=== PATIENT | female | born 1995 | race Caucasian/White ===

== ENCOUNTER 2018-10-07 06:26 | Emergency (ER) | payer SELFPAY ==
[~2018-10-07] VITALS: Ht 160 cm; Wt 104.3 kg
--- NOTE | 2018-10-07 07:01 | ED Cough/URI ---
General Chief Complaint: Fever-Adult/Adol Stated Complaint: BREAKING OUT IN SWEATS,COUGHING,SORE THROAT,RUNNY Source: patient, other Exam Limitations: no limitations History of Present Illness Date Seen by Provider: October 07, 2018 Time Seen by Provider: 06:45 Initial Comments Patient presents with cough, runny nose, subjective fever and chills for the past couple weeks. She been trying NyQuil and Mucinex. She does not have a thermometer. She has a throat that is sore worsening morning. Coughing is worse in the morning after she gets up. No history of asthma, COPD. Does not smoke cigarettes. No other significant medical history. Allergies and Home Medications Patient Home Medication List Home Medication List Reviewed: Yes Review of Systems Review of Systems Constitutional: chills; No diaphoresis; fever, malaise EENTM: No ear discharge, No ear pain Respiratory: cough; No phlegm, No short of breath, No wheezing Cardiovascular: No chest pain, No edema Gastrointestinal: No abdominal pain, No nausea, No vomiting Genitourinary: No discharge, No dysuria Past Rkkcxmy-Lyhvbk-Gvoftw Hx Patient Social History Alcohol Use: Denies Use Recreational Drug Use: No Smoking Status: Never a Smoker Recent Foreign Travel: No Contact w/Someone Who Travel: No Physical Exam Vital Signs - First Documented 10/07/18 06:45 Temp 98.9 Pulse 87 Resp 20 B/P (MAP) 123/86 (98) Pulse Ox 98 O2 Delivery Room Air Capillary Refill : Height: '" Weight: lbs. oz. kg; BMI Method: General Appearance: WD/WN, no apparent distress Eyes: Bilateral Eye Normal Inspection, Bilateral Eye PERRL, Bilateral Eye EOMI HEENT: PERRL/EOMI, normal ENT inspection, TMs normal, pharynx normal Neck: non-tender, full range of motion, supple, normal inspection Respiratory: lungs clear, normal breath sounds, no respiratory distress, no accessory muscle use Cardiovascular: normal peripheral pulses, regular rate, rhythm, no edema Neurologic/Psychiatric: alert, oriented x 3 Skin: normal color, warm/dry Progress/Results/Core Measures Suspected Sepsis SIRS Temperature: Pulse: Respiratory Rate: Blood Pressure / Mean: Results/Orders Micro Results Microbiology 10/07/18 Influenza Types A,B Antigen (ESTRADA) - Final, Complete My Orders Orders - ALLEN MCGUIRE Influenza A And B Antigens (10/07/18 06:55) Vital Signs/I&O 10/07/18 06:45 Temp 98.9 Pulse 87 Resp 20 B/P (MAP) 123/86 (98) Pulse Ox 98 O2 Delivery Room Air Capillary Refill : Departure Impression Primary Impression: Upper respiratory infection Qualified Codes: J06.9 - Acute upper respiratory infection, unspecified Additional Impression: Cough Disposition: 01 HOME, SELF-CARE Condition: Stable Departure-Patient Inst. Decision time for Depature: 07:27 Referrals: [facility]/K (PCP/Family) Primary Care Physician Patient Instructions: Viral Upper Respiratory Infection, Adult (DC) Add. Discharge Instructions: Humidifiers, vapor rubs, qfcu-rsr-hjhwstj decongestant such as chlorpheniramine 4 mg every 4 hours as needed. If you have fevers or chills take Tylenol and/or Motrin. All discharge instructions reviewed with patient and/or family. Voiced understanding. ALLEN MCGUIRE October 07, 2018 07:01
[2018-10-07 07:45] VITALS: BP 113/78
== END 2018-10-07 07:45 | disposition home or self-care (01) ==
LOC: EDUNIT# 06:26 → ER 06:29
DX: J06.9 Acute upper respiratory infection, unspecified (principal)
CPT/HCPCS: 87804

== ENCOUNTER 2019-10-31 20:52 | Emergency (ER) | payer SELFPAY ==
[~2019-10-31] VITALS: Ht 160 cm; Wt 114.0 kg
[2019-10-31 21:39] LABS: BILIRUBIN,URINE NEGATIVE (NEGATIVE); CLARITY,URINE CLOUDY; COLOR,URINE RED; GLUCOSE, URINE (UA) TRACE (NEGATIVE); KETONES,URINE TRACE (NEGATIVE); LEUKOCYTE ESTERASE ,URINE 1+ (NEGATIVE); NITRITE,URINE POSITIVE (NEGATIVE); PH,URINE 5.5 (5-9); PROTEIN,URINE 2+ (NEGATIVE)
[2019-10-31] MEDS ORDERED: ACETAMINOPHEN 500 MG TAB (TYLENOL) PO ONE (21:45)
--- NOTE | 2019-10-31 21:46 | ED GU-Female ---
General Chief Complaint: DIRECTOR PROPERTY Stated Complaint: APPROX 7 WKS PREG/CRAMPING/BLEEDING Source: patient Exam Limitations: no limitations History of Present Illness Date Seen by Provider: October 31, 2019 Time Seen by Provider: 21:08 Initial Comments Patient presents to ER by private conveyance with chief complaint that the past 2 hours she's had low pelvic cramping and vaginal bleeding. She's used 1 pad in the last 2 hours. She is a with a positive test with last menstrual period of September 04, 2019 putting her at 8 weeks and 1 day. He's having no nausea chest pain fevers or chills. She rates her pain as a 10 out of 10. No previous abdominal surgeries. She has a history of intermittent asthma but no other significant medical history. She follows at [facility] and has not seen her OB provider yet. She's had an ultrasound of her pelvis yet. Allergies and Home Medications Allergies Coded Allergies: diphenhydramine (Unverified Adverse Reaction, Unknown, paralysis, 10/31/19) montelukast (Unverified Adverse Reaction, Unknown, migraine, 10/31/19) Patient Home Medication List Home Medication List Reviewed: Yes Review of Systems Review of Systems Constitutional: No chills, No fever EENTM: No ear discharge, No ear pain Respiratory: No cough, No short of breath Cardiovascular: No chest pain, No edema Gastrointestinal: abdominal pain; No constipation, No nausea, No vomiting Genitourinary: denies discharge, denies dysuria Musculoskeletal: No back pain, No joint pain Skin: No pruritus, No rash Psychiatric/Neurological: Denies Headache, Denies Numbness, Denies Paresthesia Hematologic/Lymphatic: Denies Anemia, Denies Blood Clots All Other Systemes Reviewed Negative Unless Noted: No Past Ctbapmg-Rhucec-Ahwgzs Hx Patient Social History Alcohol Use: Denies Use Recreational Drug Use: No Smoking Status: Never a Smoker Recent Foreign Travel: No Contact w/Someone Who Travel: No Physical Exam Vital Signs Vital Signs - First Documented 10/31/19 21:20 Temp 37.4 Pulse 101 Resp 18 B/P (MAP) 136/100 (112) O2 Delivery Room Air Capillary Refill : Height, Weight, BMI Height: 5'3.00" Weight: 230lbs. oz. 104.012195sf; BMI Method:Stated General Appearance: WD/WN, no apparent distress HEENT: PERRL/EOMI, pharynx normal Neck: non-tender, full range of motion, normal inspection Cardiovascular: normal peripheral pulses, regular rate, rhythm Respiratory: normal breath sounds, no respiratory distress, no accessory muscle use Gastrointestinal: normal bowel sounds, non tender, no organomegaly Extremities: normal range of motion, non-tender, normal inspection, normal capillary refill Neurologic/Psychiatric: alert, normal mood/affect Skin: normal color, warm/dry Progress/Results/Core Measures Suspected Sepsis SIRS Temperature: Pulse: Respiratory Rate: Laboratory Tests 10/31/19 21:53: White Blood Count 9.0 Blood Pressure / Mean: Laboratory Tests 10/31/19 21:53: Creatinine 0.83, Platelet Count 208 Results/Orders Lab Results Laboratory Tests Test 10/31/19 21:30 10/31/19 21:53 Range/Units Urine Color RED H Urine Clarity CLOUDY Urine pH 5.5 5-9 Urine Specific [place] 1.025 H 1.016-1.022 Urine Protein 2+ H NEGATIVE Urine Glucose (UA) TRACE H NEGATIVE Urine Ketones TRACE H NEGATIVE Urine Nitrite POSITIVE H NEGATIVE Urine Bilirubin NEGATIVE NEGATIVE Urine Urobilinogen 2.0 < = 1.0 MG/DL Urine Leukocyte Esterase 1+ H NEGATIVE Urine RBC (Auto) 3+ H NEGATIVE Urine RBC TNTC H /HPF Urine WBC 5-10 H /HPF Urine Squamous Epithelial Cells 2-5 /HPF Urine Crystals NONE /LPF Urine Bacteria NEGATIVE /HPF Urine Casts NONE /LPF Urine Mucus NEGATIVE /LPF Urine Culture Indicated NO White Blood Count 9.0 4.3-11.0 10^3/uL Red Blood Count 4.52 4.35-5.85 10^6/uL Hemoglobin 13.9 11.5-16.0 G/DL Hematocrit 40 35-52 % Mean Corpuscular Volume 89 80-99 FL Mean Corpuscular Hemoglobin 31 25-34 PG Mean Corpuscular Hemoglobin Concent 35 32-36 G/DL Red Cell Distribution Width 13.2 10.0-14.5 % Platelet Count 208 130-400 10^3/uL Mean Platelet Volume 9.9 7.4-10.4 FL Neutrophils (%) (Auto) 61 42-75 % Lymphocytes (%) (Auto) 30 12-44 % Monocytes (%) (Auto) 8 0-12 % Eosinophils (%) (Auto) 1 0-10 % Basophils (%) (Auto) 0 0-10 % Neutrophils # (Auto) 5.5 1.8-7.8 X 10^3 Lymphocytes # (Auto) 2.7 1.0-4.0 X 10^3 Monocytes # (Auto) 0.8 0.0-1.0 X 10^3 Eosinophils # (Auto) 0.1 0.0-0.3 10^3/uL Basophils # (Auto) 0.0 0.0-0.1 10^3/uL Sodium Level 140 135-145 MMOL/L Potassium Level 3.6 3.6-5.0 MMOL/L Chloride Level 106 98-107 MMOL/L Carbon Dioxide Level 22 21-32 MMOL/L Anion Gap 12 5-14 MMOL/L Blood Urea Nitrogen 10 7-18 MG/DL Creatinine 0.83 0.60-1.30 MG/DL Estimat Glomerular Filtration Rate > 60 BUN/Creatinine Ratio 12 Glucose Level 92 70-105 MG/DL Calcium Level 9.2 8.5-10.1 MG/DL Human Chorionic Gonadotropin, Quant 255 H <5 MIU/ML My Orders Orders - ALLEN MCGUIRE Ua Culture If Indicated (10/31/19 20:54) Urine Bedside (10/31/19 20:54) Cbc With Automated Diff (10/31/19 21:36) Basic Metabolic Panel (10/31/19 21:36) Hcg,Quantitative (10/31/19 21:36) Acetaminophen Tablet (Tylenol Tablet) (10/31/19 21:45) Ceftriaxone For Iv Use (Rocephin For I (11/01/19 00:30) Ceftriaxone For Im Use (Rocephin For Im (11/01/19 09:00) Lidocaine 1% Inj 20 Ml (Xylocaine 1% Inj (11/01/19 00:30) Abo Rh Type (11/01/19 00:32) Rh Immune Globulin Rhophylac (11/01/19 00:59) Rhogam Administration (11/01/19 00:59) Ceftriaxone For Iv Use (Rocephin For I (11/01/19 00:52) Medications Given in ED Current Medications Medications Dose Ordered Sig/Khari Route Start Time Stop Time Status Last Admin Dose Admin Acetaminophen 1,000 mg ONCE ONCE PO 10/31/19 21:45 10/31/19 21:46 DC 10/31/19 22:11 1,000 MG Lidocaine HCl 2.1 ml ONCE ONCE INJ 11/01/19 00:30 11/01/19 00:31 DC 11/01/19 01:13 2.1 ML Vital Signs/I&O 10/31/19 21:20 Temp 37.4 Pulse 101 Resp 18 B/P (MAP) 136/100 (112) O2 Delivery Room Air Capillary Refill : Progress Note #1: Time: 00:25 Progress Note Patient has a quantitative hCG of 255 which is incompatible with an 8 week likely. Suspect she is having miscarriage of of unknown location. She claims to have 10 of 10 pain but has been resting with no appearance of discomfort. We'll going to offer her expectant management versus active management by having her follow-up in 2 days with her primary care doctor. Progress Note #2: Time: 01:48 Progress Note Rhogam administered. Departure Impression Primary Impression: Incomplete miscarriage Disposition: HOME, SELF-CARE Condition: Stable Departure-Patient Inst. Decision time for Depature: 01:48 Referrals: [facility]/ (PCP) Primary Care Physician SUSSY ROBERTS APRN (Family) Primary Care Physician Patient Instructions: Miscarriage (DC), Dealing With Miscarriage Add. Discharge Instructions: Plan to follow up Friday with your anesthesiologist and critical care for repeat labs. Tylenol 1000 mg every 8 hours as needed for pain. Heating pads. Expect cramping, bleeding and possibly passing some small bits of tissue. Return to the ER if you experience blood clots larger than a chicken egg, intractable pain, intractable nausea or fever. All discharge instructions reviewed with patient and/or family. Voiced understanding. Work/School Note: Work Release Form Date Seen in the Emergency Department: November 01, 2019 Return to Work: November 04, 2019 Restrictions: No Restrictions ALLEN MCGUIRE October 31, 2019 21:46
[2019-10-31 21:48] LABS: BACTERIA,URINE NEGATIVE /HPF; RBC,URINE TNTC /HPF
[2019-10-31 21:59] LABS: BASOPHILS % (AUTO) 0 % (0-10); EOSINOPHILS # (AUTO) 0.1 10^3/uL (0.0-0.3); EOSINOPHILS % (AUTO) 1 % (0-10); HEMATOCRIT 40 % (35-52); HEMOGLOBIN 13.9 G/DL (11.5-16.0); LYMPHOCYTES # (AUTO) 2.7 X 10^3 (1.0-4.0); LYMPHOCYTES % (AUTO) 30 % (12-44); MEAN CORPUSCULAR HEMOGLOBIN 31 PG (25-34); MEAN CORPUSCULAR HGB CONC 35 G/DL (32-36); MEAN CORPUSCULAR VOLUME 89 FL (80-99); MEAN PLATELET VOLUME 9.9 FL (7.4-10.4); MONOCYTES # (AUTO) 0.8 X 10^3 (0.0-1.0); MONOCYTES % (AUTO) 8 % (0-12); NEUTROPHILS # (AUTO) 5.5 X 10^3 (1.8-7.8); NEUTROPHILS % (AUTO) 61 % (42-75); PLATELET COUNT 208 10^3/uL (130-400); RED CELL DISTRIBUTION WIDTH 13.2 % (10.0-14.5)
[2019-10-31 22:13] LABS: CHLORIDE 106 MMOL/L (98-107); POTASSIUM 3.6 MMOL/L (3.6-5.0); SODIUM 140 MMOL/L (135-145)
[2019-10-31 22:14] LABS: CALCIUM 9.2 MG/DL (8.5-10.1)
[2019-10-31 22:15] LABS: GLUCOSE 92 MG/DL (70-105)
[2019-10-31 22:16] LABS: CARBON DIOXIDE 22 MMOL/L (21-32)
[2019-10-31 22:19] LABS: BUN/CREATININE RATIO 12; CREATININE SERUM 0.83 MG/DL (0.60-1.30); GFR ESTIMATED > 60
[2019-11-01] MEDS ORDERED: cefTRIAXone FOR IV USE 1,000 MG in WATER (STERILE) FOR INJECTION 10 ML IV ONE (00:30)
[2019-11-01] MEDS ORDERED: LIDOCAINE 1% INJ 20 ML 20 ML VIAL INJ ONE (00:30)
[2019-11-01] MEDS ORDERED: cefTRIAXone 1,000 MG IV (ROCEPHIN) VIAL ONE (00:52)
--- NOTE | 2019-11-01 01:30 | NUR ---
RHOGAM GIVEN IM TO LEFT VENTROGLUTEAL.
[2019-11-01 01:51] VITALS: BP 136/100
[2019-11-01] MEDS ORDERED: cefTRIAXone 1,000 MG/2.86 ml vial (IM ONLY) IM SCH (09:00)
== END 2019-11-01 01:51 | disposition home or self-care (01) ==
LOC: EDUNIT# 20:52 → ER 20:54
DX: O03.4 Incomplete spontaneous abortion without complication (principal); Z88.8 Allergy status to other drugs, medicaments and biological substances
CPT/HCPCS: 36415; 80048; 81000; 84702; 84703; 85025; 86900; 86901; 96372

== ENCOUNTER 2020-01-26 14:27 | Emergency (ER) | payer SELFPAY ==
[2020-01-27 10:22] LABS: COLOR,URINE YELLOW
[2020-01-27 10:23] LABS: BILIRUBIN,URINE NEGATIVE (NEGATIVE); CLARITY,URINE SL CLOUDY; GLUCOSE, URINE (UA) NEGATIVE (NEGATIVE); KETONES,URINE NEGATIVE (NEGATIVE); LEUKOCYTE ESTERASE ,URINE 2+ (NEGATIVE); NITRITE,URINE NEGATIVE (NEGATIVE); PH,URINE 6.5 (5-9); PROTEIN,URINE NEGATIVE (NEGATIVE)
[2020-01-27 10:24] LABS: BACTERIA,URINE TRACE /HPF; HCG,QUALITATIVE URINE NEGATIVE (NEGATIVE); SQUAMOUS EPITHELIAL CELL,UR 0-2 /HPF; WBC,URINE 25-50 /HPF
== END 2020-01-26 15:20 | disposition home or self-care (01) ==
LOC: ER 14:27 → EDUNIT# 14:27 → ER 15:20
DX: N76.0 Acute vaginitis (principal); N39.0 Urinary tract infection, site not specified
CPT/HCPCS: 36415; 81000; 84703; 87070; 87088; 87205; 87210; 87491; 87591

== ENCOUNTER 2020-07-08 00:26 | Emergency (ER) | payer SELFPAY ==
[~2020-07-08] VITALS: Ht 160 cm; Wt 114.0 kg
[2020-07-08 00:35] VITALS: BP 118/89
--- NOTE | 2020-07-08 00:50 | ED EENT ---
History of Present Illness General Chief Complaint: Oral/Throat Problems Stated Complaint: SORE THROAT Source: patient History of Present Illness Date Seen by Provider: Jul 08, 2020 Time Seen by Provider: 00:37 Initial Comments PT ARRIVES VIA POV FROM HOME C/O SORE THROAT X 2 DAYS NO FEVER/SWEATS/CHILLS NO URI SYMPTOMS NO COUGH OR DIFFICULTY BREATHING, BUT DOES HURT TO SWALLOW. NO DROOLING OR DIFFICULTY HANDLING SECRETIONS NO HEADACHE NO GI SYMPTOMS NO LOSS OF TASTE OR SMELL NO HEADACHE OR BODY ACHES TOOK IBUPROFEN 2 DAYS AGO, TRIED USING A MOUTHWASH, BUT DID NOT GARGLE IT. LIVES AT HOME WITH , NEITHER WORK NO KNOWN SICK CONTACTS OR EXPOSURE TO COVID-19 GETS THIS ABOUT ONCE A YEAR LMP 06/30/20--NORMAL. NO CONTROL. PCP: [facility], MILAGROS ROBERTS Allergies and Home Medications Allergies Coded Allergies: diphenhydramine (Unverified Adverse Reaction, Unknown, paralysis, 10/31/19) montelukast (Unverified Adverse Reaction, Unknown, migraine, 10/31/19) Home Medications Amoxicillin 875 Mg Tablet, 875 MG PO BID Prescribed by: KONRAD MERCER on 07/08/20 0101 Patient Home Medication List Home Medication List Reviewed: Yes Review of Systems Review of Systems Constitutional: no symptoms reported Eyes: No Symptoms Reported Ears: No Symptoms Reported Nose: no symptoms reported Mouth: no symptoms reported Throat: see HPI, pain; denies neck stiffness, denies hoarse, denies aphonia, denies muffled; painful swallowing; denies difficulty with fluids Respiratory: no symptoms reported Cardiovascular: no symptoms reported Gastrointestinal: no symptoms reported : No LMP: Jun 30, 2020 Musculoskeletal: no symptoms reported Skin: no symptoms reported; No rash Neurological: No Symptoms Reported; Denies Headache Hematologic/Lymphatic: No Symptoms Reported Immunological/Allergic: no symptoms reported Past Teqmiwo-Bfiusi-Rubiul Hx Past Med/Social Hx: Reviewed and Corrections made Patient Social History Alcohol Use: Denies Use Drug of Choice: DENIES Smoking Status: Never a Smoker Recent Hopitalizations: No Seasonal Allergies Seasonal Allergies: No Past Medical History Surgeries: No Respiratory: No Cardiac: No Neurological: No : No Genitourinary: No Gastrointestinal: No Musculoskeletal: No Endocrine: No HEENT: Yes (OCCASIONAL TONSILLITIS) Tonsilitis Cancer: No Psychosocial: No Integumentary: No Blood Disorders: No Physical Exam Vital Signs Vital Signs - First Documented 07/08/20 00:35 Temp 37.0 Pulse 128 Resp 16 B/P (MAP) 118/89 (99) O2 Delivery Room Air Height, Weight, BMI Height: 5'3.00" Weight: 230lbs. oz. 104.445560ck; 44.00 BMI Method:Stated General Appearance: WD/WN, no apparent distress, obese, other (DOES NOT APPEAR ILL OR TO BE IN ANY DISCOMFORT OR DISTRESS. ) Eyes: bilateral eye normal inspection, bilateral eye PERRL, bilateral eye EOMI Ears: bilateral ear auricle normal, bilateral ear canal normal, bilateral ear TM normal Nose: normal inspection Mouth/Throat: No tonsillar exudate; tonsillar swelling (+2/4 BILATERALLY); No trismus, No uvula swelling, No voice changes; other (PHARYNGEAL ERYTHEMA AND TONSILS VERY INFLAMED. 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, no motor/sensory deficits, alert, normal mood/affect, oriented x 3 Skin: normal color, warm/dry; No rash Progress/Results/Core Measures Results/Orders Lab Results Laboratory Tests Test 07/08/20 00:40 Range/Units Group A Streptococcus Screen NEGATIVE NEGATIVE My Orders Orders - KONRAD MERCER DO Rapid Strep A Screen (07/08/20 00:37) Rx-Amoxicillin Capsule (Rx-Polymox Capsu (07/08/20 01:01) Vital Signs/I&O 07/08/20 00:35 Temp 37.0 Pulse 128 Resp 16 B/P (MAP) 118/89 (99) O2 Delivery Room Air Departure Impression Primary Impression: Tonsillitis Disposition: HOME, SELF-CARE Condition: Stable Departure-Patient Inst. Referrals: [facility]/RAD[facility] (PCP) Primary Care Physician SUSSY ROBERTS APRN (Family) Primary Care Physician Patient Instructions: Sore Throat, Adult (DC) Add. Discharge Instructions: FREQUENT SALT WATER GARGLES OVER THE COUNTER CHLORASEPTIC NEEDED FOR PAIN TYLENOL 1 GRAM/ MOTRIN 800 MG 4 TIMES A DAY NEEDED FOR PAIN OR FEVER FOLLOW UP WITH YOUR DR IN 3-4 DAYS IF NO BETTER All discharge instructions reviewed with patient and/or family. Voiced understanding. Scripts Amoxicillin (Amoxicillin) 875 Mg Tablet 875 MG PO BID, #20 TAB Prov: KONRAD MERCER DO 07/08/20 KONRAD MERCER DO Jul 08, 2020 00:50
[2020-07-08] MEDS ORDERED: AMOX875T2 PO (01:01)
[2020-07-08] MEDS ORDERED: RX-AMOXICILLIN 500 MG CAP #3 PPK PO STA (01:01)
== END 2020-07-08 01:11 | disposition home or self-care (01) ==
LOC: EDUNIT# 00:26 → ER 00:30
DX: J03.90 Acute tonsillitis, unspecified (principal); E66.9 Obesity, unspecified; Z68.41 Body mass index [BMI] 40.0-44.9, adult; Z88.8 Allergy status to other drugs, medicaments and biological substances
CPT/HCPCS: 87430; 99284

== ENCOUNTER 2021-01-16 21:29 | Emergency (ER) | payer SELFPAY ==
[~2021-01-16] VITALS: Ht 160 cm; Wt 112.0 kg
[~2021-01-16 21:29] MED LIST: AMOX875T2 PO
[2021-01-16 21:41] VITALS: BP 122/80
[2021-01-16] MEDS ORDERED: ACHD5005 PO (22:10)
[2021-01-16] MEDS ORDERED: PENI500T PO (22:10)
--- NOTE | 2021-01-16 22:11 | ED EENT ---
History of Present Illness General Chief Complaint: Dental Problems/Pain Stated Complaint: TOOTH PAIN Source: patient Exam Limitations: no limitations History of Present Illness Date Seen by Provider: Jan 16, 2021 Time Seen by Provider: 21:58 Initial Comments Patient is a 25-year-old female who presents to the emergency room with right posterior molar pain and pain that she believes is related to her wisdom teeth erupting. Patient denies any fevers or chills. She states she feels like she is getting swelling into her tonsils as it hurts to open her mouth and swallow. No Covid concerns. No nausea vomiting diarrhea. Last menstrual cycle started yesterday. She states she has been taking Tylenol and 800 mg of ibuprofen alternating every 6 hours for pain. All other review of systems reviewed and negative except as stated. Timing/Duration: gradual (Over 3 days) Severity: moderate Location: dental Prearrival Treatment: over the counter meds Associated Symptoms: facial pain/swelling, sore throat, tooth pain Allergies and Home Medications Allergies Coded Allergies: diphenhydramine (Unverified Adverse Reaction, Unknown, paralysis, 10/31/19) montelukast (Unverified Adverse Reaction, Unknown, migraine, 10/31/19) Home Medications Amoxicillin 875 Mg Tablet, 875 MG PO BID Prescribed by: KONRAD MERCER on 07/08/20 0101 Patient Home Medication List Home Medication List Reviewed: Yes Review of Systems Review of Systems Constitutional: see HPI Mouth: pain (Dental pain right posterior molar) Throat: pain Respiratory: no symptoms reported Cardiovascular: no symptoms reported Gastrointestinal: no symptoms reported : No Musculoskeletal: no symptoms reported Skin: no symptoms reported All Other Systems Reviewed Negative Unless Noted: Yes Past Nkiwhth-Tdrpoh-Gtihcc Hx Seasonal Allergies Seasonal Allergies: No Past Medical History Surgeries: No Respiratory: No Cardiac: No Neurological: No Genitourinary: No Gastrointestinal: No Musculoskeletal: No Endocrine: No HEENT: Yes (OCCASIONAL TONSILLITIS) Tonsilitis Cancer: No Psychosocial: No Integumentary: No Blood Disorders: No Physical Exam Height, Weight, BMI Height: 5'3.00" Weight: 230lbs. oz. 104.220296lg; 44.00 BMI Method:Stated General Appearance: WD/WN, no apparent distress Nose: normal inspection Mouth/Throat: normal mouth inspection, other (Mild pharyngeal erythema; apparent right lower wisdom tooth starting to erupt through the gingiva, tender to palpation in the gingiva around this tooth.) Neck: full range of motion, supple, normal inspection Respiratory: no respiratory distress, no accessory muscle use Neurologic/Psychiatric: alert, normal mood/affect, oriented x 3 Skin: normal color, warm/dry Departure Impression Primary Impression: Pain, dental Disposition: 01 HOME, SELF-CARE Condition: Stable Departure-Patient Inst. Decision time for Depature: 22:08 Referrals: [facility] (PCP) Primary Care Physician SUSSY ROBERTS APRN (Family) Primary Care Physician Patient Instructions: Dental Pain Add. Discharge Instructions: Take the antibiotics 4 times a day for a week. Continue to take junj-kia-hrlvktl ibuprofen, 800 mg which is 4 tablets every 8 hours with food as needed for pain. I have given you hydrocodone as well. Take this only as needed for severe pain. Warm salt water rinses and gargles will help with throat pain and dental pain and gum swelling. Follow-up with [facility] tomorrow call for dental evaluation/follow-up. Return to the emergency room for any worsening pain, swelling, fevers or other emergent concerning symptoms. Scripts Hydrocodone/Acetaminophen (Hydrocodone-Acetamin 5-325 mg) 1 Each Tablet 1 TAB PO Q6H PRN for PAIN-MODERATE (5-7), #8 TAB Prov: DYLAN HERNANDEZ MD 01/16/21 Penicillin V Potassium (Penicillin V Potassium) 500 Mg Tablet 500 MG PO QID, #28 TAB Prov: DYLAN HERNANDEZ MD 01/16/21 DYLAN HERNANDEZ MD Jan 16, 2021 22:11
[2021-01-16] MEDS ORDERED: HYDROcodone/APAP 5 MG/325 MG (LORTAB) TAB PO ONE (22:15)
== END 2021-01-16 22:21 | disposition home or self-care (01) ==
LOC: EDUNIT# 21:29 → ER 21:31
DX: K08.89 Other specified disorders of teeth and supporting structures (principal)
CPT/HCPCS: 99283

== ENCOUNTER 2021-04-23 15:37 | Emergency (ER) | payer SELFPAY ==
[~2021-04-23] VITALS: Ht 162.6 cm; Wt 114.8 kg
[~2021-04-23 15:37] MED LIST changes: +ACHD5005 PO; +PENI500T PO
--- NOTE | 2021-04-23 15:53 | ED GU-Female ---
General Chief Complaint: OB < 20 WEEKS Stated Complaint: 7 WKS PREG/CONSTIPATION Source: patient, family ((sig other)) Exam Limitations: no limitations History of Present Illness Date Seen by Provider: Apr 23, 2021 Time Seen by Provider: 15:40 Initial Comments Patient is a 25-year-old female who is a G2, P0 who presents to the emergency department today with a chief complaint of "constipation". Patient states that she has been taking some Colace sporadically over the last few days. She took 1 "the other day" and then yesterday she took 3. Patient states she did an enema last night and was able to force out some very hard stool. Last bowel movement before that had been about a week prior. She denies any black or bloody stool. She has not been using any medication such as Zofran for nausea. She states she has been drinking "lots of water". She states her last menstrual cycle was about March 17. EGA 5w 07/16. Patient denies any recent fevers, chills cough or congestion or infectious symptoms. Denies abnormal vaginal discharge or bleeding. Denies burning or frequency with urination. No past surgical history. She has taken some Tylenol for abdominal discomfort but she states it has not helped. Most recent miscarriage was in October 2020. All other review of systems reviewed and negative except as stated Timing/Duration: week, getting worse Severity/Quality: cramping Location: suprapubic Radiation: none Activities at Onset: none Associated Symptoms: abdominal pain (suprapubic discomfort) Allergies and Home Medications Allergies Coded Allergies: diphenhydramine (Unverified Adverse Reaction, Unknown, paralysis, 10/31/19) montelukast (Unverified Adverse Reaction, Unknown, migraine, 10/31/19) Patient Home Medication List Home Medication List Reviewed: Yes Amoxicillin (Amoxicillin) 875 Mg Tablet, 875 MG PO BID Prescribed by: KONRAD MERCER on 07/08/20 0101 Hydrocodone/Acetaminophen (Hydrocodone-Acetamin 5-325 mg) 1 Each Tablet, 1 TAB PO Q6H PRN for PAIN-MODERATE (5-7) Prescribed by: DYLAN HERNANDEZ on 01/16/212209 Penicillin V Potassium (Penicillin V Potassium) 500 Mg Tablet, 500 MG PO QID Prescribed by: DYLAN HERNANDEZ on 01/16/212209 Review of Systems Review of Systems Constitutional: see HPI EENTM: no symptoms reported Respiratory: no symptoms reported Cardiovascular: no symptoms reported Gastrointestinal: abdominal pain, constipation Genitourinary: no symptoms reported : Yes Expected Date of Delivery: Dec 22, 2021 LMP: Mar 17, 2021 Musculoskeletal: no symptoms reported Skin: no symptoms reported All Other Systemes Reviewed Negative Unless Noted: Yes Past Yeiyweo-Fraexp-Jdxidq Hx Patient Social History Tobacco Use?: No Use of E-Cig and/or Vaping dev: No Substance use?: No Alcohol Use?: No Immunizations Up To Date First/Initial COVID19 Vaccinat: NONE Second COVID19 Vaccination Manas: NONE Third COVID19 Vaccination Date: NONE COVID19 Vaccine Inspector Precision Assembly: NONE Seasonal Allergies Seasonal Allergies: No Past Medical History Surgery/Hospitalization HX: MISCARRIAGE 10/20/20 Surgeries: No Respiratory: No Cardiac: No Neurological: No Genitourinary: No Gastrointestinal: No Musculoskeletal: No Endocrine: No HEENT: Yes (OCCASIONAL TONSILLITIS) Tonsilitis Cancer: No Psychosocial: No Integumentary: No Blood Disorders: No Physical Exam Vital Signs Vital Signs - First Documented 04/23/21 15:41 Temp 37.1 Pulse 100 Resp 20 B/P (MAP) 137/96 (110) Pulse Ox 98 O2 Delivery Room Air Capillary Refill : Height, Weight, BMI Height: 5'3.00" Weight: 230lbs. oz. [id number]; 43.00 BMI Method:Stated General Appearance: WD/WN, no apparent distress HEENT: PERRL/EOMI Neck: normal inspection Cardiovascular: regular rate, rhythm, no murmur Respiratory: lungs clear, normal breath sounds, no respiratory distress, no accessory muscle use Gastrointestinal: normal bowel sounds, non tender, soft Extremities: normal range of motion, normal inspection Neurologic/Psychiatric: alert, normal mood/affect, oriented x 3 Skin: normal color, warm/dry Progress/Results/Core Measures Suspected Sepsis SIRS Temperature: Pulse: Respiratory Rate: Blood Pressure / Mean: Results/Orders Lab Results Laboratory Tests Test 04/23/21 15:54 Range/Units Urine Color YELLOW Urine Clarity SL CLOUDY Urine pH 7.5 5-9 Urine Specific Barrow 1.020 1.016-1.022 Urine Protein NEGATIVE NEGATIVE Urine Glucose (UA) NEGATIVE NEGATIVE Urine Ketones NEGATIVE NEGATIVE Urine Nitrite NEGATIVE NEGATIVE Urine Bilirubin NEGATIVE NEGATIVE Urine Urobilinogen 0.2 < = 1.0 MG/DL Urine Leukocyte Esterase 1+ H NEGATIVE Urine RBC (Auto) NEGATIVE NEGATIVE Urine RBC NONE /HPF Urine WBC 10-25 H /HPF Urine Squamous Epithelial Cells 0-2 /HPF Urine Crystals NONE /LPF Urine Bacteria MODERATE H /HPF Urine Casts NONE /LPF Urine Mucus NEGATIVE /LPF Urine Culture Indicated YES My Orders Orders - DYLAN HERNANDEZ MD Ua Culture If Indicated (04/23/21 15:47) Urine Culture (04/23/21 15:54) Vital Signs/I&O 04/23/21 15:41 Temp 37.1 Pulse 100 Resp 20 B/P (MAP) 137/96 (110) Pulse Ox 98 O2 Delivery Room Air Capillary Refill : Progress Note : Time: 15:51 Progress Note Patient has a nontender belly, positive bowel sounds. No unilateral abdominal pain. No abnormal vaginal discharge or bleeding. Will recommend svma-gjf-fftrpwv Colace, twice daily. Benefiber/MiraLAX. Increase water intak e, prune juice or dried prunes. She has scheduled follow-up with Dr. Stovall. Urinalysis will be checked to make sure that she does not have any asymptomatic bacteriuria. Return precautions given. All questions sought and answered. Patient is stable for discharge. Departure Impression Primary Impression: Constipation Qualified Codes: K59.00 - Constipation, unspecified Additional Impressions: First trimester Asymptomatic bacteriuria antepartum Disposition: 01 HOME, SELF-CARE Condition: Stable Departure-Patient Inst. Decision time for Depature: 15:53 [place]: [facility] [place] Primary Care Physician ANTONY COOL DO (Family) Primary Care Physician MITUL STOVALL MD Patient Instructions: Constipation in Adults Add. Discharge Instructions: Make sure you are drinking lots of water. You can also drink prune juice or eat dried prunes to help soften stools. Likp-feu-eyclkgb Colace 1 tablet twice a day. You can also use roff-qzs-uomsvyo MiraLAX or Benefiber daily to help soften stoo ls. Enemas are okay intermittently to help relieve rectal discomfort. Try not to strain with a bowel movement. Keep your follow-up appointment with Dr. Stovall as scheduled. Keflex 500mg 3 times a day for 5 days for bacteria in your urine. Return to the emergency room for any increased abdominal pain, vaginal bleeding, rectal bleeding or any other emergent concerning symptoms. Scripts Cephalexin (Cephalexin) 500 Mg Tablet 500 MG PO TID, #15 TAB Prov: DYLAN HERNANDEZ MD 04/23/21 DYLAN HERNANDEZ MD Apr 23, 2021 15:53
[2021-04-23 16:07] LABS: BILIRUBIN,URINE NEGATIVE (NEGATIVE); CLARITY,URINE SL CLOUDY; COLOR,URINE YELLOW; GLUCOSE, URINE (UA) NEGATIVE (NEGATIVE); KETONES,URINE NEGATIVE (NEGATIVE); LEUKOCYTE ESTERASE ,URINE 1+ (NEGATIVE); NITRITE,URINE NEGATIVE (NEGATIVE); PH,URINE 7.5 (5-9); PROTEIN,URINE NEGATIVE (NEGATIVE)
[2021-04-23 16:16] LABS: BACTERIA,URINE MODERATE /HPF; SQUAMOUS EPITHELIAL CELL,UR 0-2 /HPF
[2021-04-23] MEDS ORDERED: CEPH500T PO (16:20)
[2021-04-23 16:27] VITALS: BP 111/78
== END 2021-04-23 16:27 | disposition home or self-care (01) ==
LOC: EDUNIT# 15:37 → ER 15:38
DX: O26.891 Other specified pregnancy related conditions, first trimester (principal); K59.00 Constipation, unspecified; R82.71 Bacteriuria; Z3A.01 Less than 8 weeks gestation of pregnancy
CPT/HCPCS: 81000; 84703; 87088; 99283

== ENCOUNTER 2021-09-08 18:52 | Outpatient (CLI) | payer MEDICAID ==
[~2021-09-08 18:52] MED LIST changes: +CEPH500T PO
[2021-09-08 19:29] VITALS: BP 108/57
[2021-09-08] MEDS ORDERED: PNV1TABL9 PO (19:35)
[2021-09-08] MEDS ORDERED: FAMO-274 PO (19:35)
--- NOTE | 2021-09-10 08:06 | Physician Query-Final Dx ---
Clinic Account Progress/Dx Physician Query: Please give diagnosis Please include # weeks gestation Date of Service Sep 08, 2021 at 18:52 AYSHA,JunSep 10, 2021 08:06
== END 2021-09-08 20:05 ==
LOC: LDRP 18:52 → WSo 18:52
PROVIDERS: ATTEND Family Medicine
DX: O9A.212 Injury, poisoning and certain other consequences of external causes complicating pregnancy, second trimester (principal); W19.XXXA Unspecified fall, initial encounter; Z3A.25 25 weeks gestation of pregnancy
CPT/HCPCS: 87088; G0463; 99212

== ENCOUNTER 2021-11-27 22:38 | Outpatient (CLI) | payer MEDICAID ==
[~2021-11-27] VITALS: Ht 163 cm; Wt 117.8 kg
[~2021-11-27 22:38] MED LIST changes: +FAMO-274 PO; +PNV1TABL9 PO
[2021-11-27 23:02] LABS: BILIRUBIN,URINE NEGATIVE (NEGATIVE); CLARITY,URINE CLEAR; COLOR,URINE YELLOW; GLUCOSE, URINE (UA) NEGATIVE (NEGATIVE); KETONES,URINE TRACE (NEGATIVE); LEUKOCYTE ESTERASE ,URINE 2+ (NEGATIVE); NITRITE,URINE NEGATIVE (NEGATIVE); PROTEIN,URINE 1+ (NEGATIVE)
[2021-11-27 23:07] VITALS: BP 126/75
[2021-11-27 23:14] LABS: BACTERIA,URINE LARGE /HPF; WBC,URINE 25-50 /HPF
[2021-11-27 23:15] LABS: CALCIUM OXALATE CRYSTALS,UR MODERATE /LPF
[2021-11-27] MEDS ORDERED: NS IV 1000 ML 0 ML ONE (23:42)
[2021-11-27] MEDS ORDERED: NS IV 1000 ML 1,000 ML IV ONE (23:45)
--- NOTE | 2021-11-30 08:02 | Physician Query-Final Dx ---
AYSHA,11/30/21 0802: Clinic Account Progress/Dx Physician Query: Please give diagnosis Please include # weeks gestation Date of Service Nov 27, 2021 at 22:38 CHECO HOLLINGSWORTH MD 11/30/21 1231: Clinic Account Progress/Dx DIAGNOSIS: Diagnosis contractions without active labor 36 weeks gestation AYSHA,JunNov 30, 2021 08:02 CHECO HOLLINGSWORTH MD Nov 30, 2021 12:31
== END 2021-11-28 01:19 | disposition home or self-care (01) ==
LOC: WSo 22:38 → LDRP 22:38 → WSo 11-28 01:19
PROVIDERS: ATTEND Family Medicine
DX: O62.9 Abnormality of forces of labor, unspecified (principal); Z3A.00 Weeks of gestation of pregnancy not specified
CPT/HCPCS: 81000; 87088; 99213

== ENCOUNTER 2021-11-30 01:20 | Emergency (ER) | payer MEDICAID ==
[~2021-11-30] VITALS: Ht 160 cm; Wt 116.7 kg
[2021-11-30 01:54] VITALS: BP 147/68
--- NOTE | 2021-11-30 01:54 | ED Integumentary General ---
General Chief Complaint: Bite-Animal/Human/Insect Stated Complaint: POSS SPIDER BITE ON ABDOMIN,37 WEEKS PREG Nursing Triage Note: PT ARRIVAL TO ER WITH COMPLAINT OF INSECT BITE X1 WEEK. PT STATES THAT IT ITCHES AND SHE IS HERE TO SEE IF ITS POISONOUS. AREA IS REDDENED AND SWELLING FROM PATIENT SCRATCHING AND MESSING WITH IT. Source: patient, mother History of Present Illness Date Seen by Provider: Nov 30, 2021 Time Seen by Provider: 01:45 Initial Comments PT ARRIVES VIA POV FROM HOME WITH MOTHER HAS A ITCHY RED SPOT TO RIGHT LOWER ABDOMEN X 1 WEEK THINKS SHE MIGHT HAVE GOT STUNG BY SOME INSECT, BUT DID NOT SEE OR FEEL ANYTHING STING HER SYMPTOMS ARE NO DIFFERENT TONIGHT IN ANY WAY HAS NOT SOUGHT CARE UNTIL TONIGHT HAS NOT TAKEN ANYTHING FOR IT OR APPLIED ANYTHING TOPICALLY TO THE AREA NO PAIN NO DRAINAGE NO INCREASE IN SIZE PT IS 38 WEEKS HAS ROUTINE OB APPOINTMENT LATER TODAY NO PROBLEMS WITH PCP: SHARON-RADHA, DR. HOLLINGSWORTH Allergies and Home Medications Allergies Coded Allergies: diphenhydramine (Unverified Adverse Reaction, Unknown, paralysis, 10/31/19) montelukast (Unverified Adverse Reaction, Unknown, migraine, 10/31/19) Patient Home Medication List Home Medication List Reviewed: Yes Famotidine (Zantac-360 (Famotidine)) 10 Mg Tablet, 10 MG PO DAILY, (Reported) Entered as Reported by: LEAH RUGGIERO on 09/08/211934 Pnv Cmb#21/Iron/Folic Acid ( Complete Caplet) 1 Each Tablet, 1 EACH PO DAILY, (Reported) Entered as Reported by: LEAH RUGGIERO on 09/08/211934 Review of Systems Review of Systems Constitutional: no symptoms reported : Yes Skin: see HPI Past Vchgmhl-Vmldgf-Oifmeq Hx Patient Social History Tobacco Use?: No Use of E-Cig and/or Vaping dev: No Substance use?: No Alcohol Use?: No Pt feels they are or have been: No Immunizations Up To Date Influenza Vaccine Up-to-Date: No; Not Current First/Initial COVID19 Vaccinat: NONE Second COVID19 Vaccination Manas: NONE Third COVID19 Vaccination Date: NONE Seasonal Allergies Seasonal Allergies: No Past Medical History Surgery/Hospitalization HX: MISCARRIAGE 10/20/20 Surgeries: No Respiratory: No Cardiac: No Neurological: No : Yes Hx : 2 Hx Para: 0 Hx Total # of Abortions (Sp): 1 Genitourinary: No Gastrointestinal: No Musculoskeletal: No Endocrine: No HEENT: Yes (OCCASIONAL TONSILLITIS) Tonsilitis Cancer: No Psychosocial: No Integumentary: No Blood Disorders: No Physical Exam Vital Signs Vital Signs - First Documented 11/30/21 01:42 Temp 36.4 Pulse 85 Resp 18 B/P (MAP) 147/68 (94) Pulse Ox 99 O2 Delivery Room Air Capillary Refill : Less Than 3 Seconds General Appearance: WD/WN, no apparent distress Gastrointestinal: non tender, other (GRAVID UTERUS, NEAR TERM, ACTIVE MOVEMENT. RIGHT LOWER ABDOMEN WITH 1 CM SLIGHTLY RAISED ERYTHEMATOUS PAPULE. NON-TENDER. NO POINTING, NO FLUCTUANCE. NO DRAINAGE. ) Extremities: normal inspection Neurologic/Psychiatric: no motor/sensory deficits, alert, normal mood/affect Skin: normal color, warm/dry, other ( ABOVE) Progress/Results/Core Measures Results/Orders Vital Signs/I&O 11/30/21 01:42 Temp 36.4 Pulse 85 Resp 18 B/P (MAP) 147/68 (94) Pulse Ox 99 O2 Delivery Room Air Blood Pressure Mean: 94 Departure Impression Primary Impression: POSSILE INSECT BITE RIGHT LOWER ABDOMEN Disposition: HOME, SELF-CARE Condition: Stable Departure-Patient Inst. Decision time for Depature: 01:54 Referrals: CHECO HOLLINGSWORTH MD (PCP/Family) Primary Care Physician Patient Instructions: Insect Bites and Stings (DC) Add. Discharge Instructions: HYDROCORTISONE CREAM TO AREA 3-4 TIMES A DAY KEEP YOUR APPOINTMENT TODAY WITH OB AT [facility] All discharge instructions reviewed with patient and/or family. Voiced understanding. KONRAD MERCER DO Nov 30, 2021 01:53
== END 2021-11-30 02:04 | disposition home or self-care (01) ==
LOC: EDUNIT# 01:20 → ER 01:24
DX: O9A.213 Injury, poisoning and certain other consequences of external causes complicating pregnancy, third trimester (principal); S30.861A Insect bite (nonvenomous) of abdominal wall, initial encounter; Z3A.30 30 weeks gestation of pregnancy; Z28.310 Unvaccinated for COVID-19; W57.XXXA Bitten or stung by nonvenomous insect and other nonvenomous arthropods, initial encounter
CPT/HCPCS: 99281

== ENCOUNTER 2021-12-02 22:37 | Outpatient (CLI) | payer MEDICAID ==
[~2021-12-02] VITALS: Ht 160 cm; Wt 117.8 kg
[2021-12-02 23:13] LABS: CLARITY,URINE SL CLOUDY; COLOR,URINE YELLOW; GLUCOSE, URINE (UA) NEGATIVE (NEGATIVE); KETONES,URINE 2+ (NEGATIVE); LEUKOCYTE ESTERASE ,URINE 2+ (NEGATIVE); NITRITE,URINE NEGATIVE (NEGATIVE); PROTEIN,URINE TRACE (NEGATIVE)
[2021-12-02 23:25] LABS: BACTERIA,URINE FEW /HPF; BILIRUBIN,URINE 1+ (NEGATIVE); CALCIUM OXALATE CRYSTALS,UR LARGE /LPF
[2021-12-02 23:26] VITALS: BP 125/70
[2021-12-02] MEDS ORDERED: OMEP20CA18 PO ×2 (23:45)
--- NOTE | 2021-12-03 08:21 | Physician Query-Final Dx ---
AYSHA,12/03/21 0821: Clinic Account Progress/Dx Physician Query: Please give diagnosis Please include # weeks gestation Date of Service Dec 02, 2021 at 22:37 REED BUI DO 12/03/212001: Clinic Account Progress/Dx DIAGNOSIS: Diagnosis 37 week GA vaginal discharge AYSHA,JunDec 03, 2021 08:21 REED BUI DO Dec 03, 2021 20:02
== END 2021-12-02 23:53 | disposition home or self-care (01) ==
LOC: WSo 22:37 → LDRP 22:37 → WSo 23:53
PROVIDERS: ATTEND Family Medicine
DX: O26.853 Spotting complicating pregnancy, third trimester (principal); Z3A.37 37 weeks gestation of pregnancy
CPT/HCPCS: 81000; 84112; 87088; 99213

== ENCOUNTER 2021-12-27 05:37 | Inpatient (IN) | payer MEDICAID ==
[2021-12-27] VITALS (62 sets, daily range): BP systolic 103–232; BP diastolic 60–99
[~2021-12-27] VITALS: Ht 164 cm; Wt 118.6 kg
[~2021-12-27 05:37] MED LIST changes: +OMEP20CA18 PO
[2021-12-27] MEDS ORDERED: OXYTOCIN PRE-MIX DRIP 500 ML IV SCH ×2 (06:00→18:45)
[2021-12-27] MEDS ORDERED: MINERAL OIL 30 ML TOP PRN (06:00)
[2021-12-27] MEDS: CATHETER FLUSH 10 ML SYR IV SCH ×2 (06:10→14:00)
[2021-12-27 06:21] LABS: BASOPHILS % (AUTO) 0 % (0-10); EOSINOPHILS % (AUTO) 0 % (0-10); HEMATOCRIT 35 % (35-52); HEMOGLOBIN 12.1 g/dL (11.5-16.0); LYMPHOCYTES % (AUTO) 23 % (12-44); MEAN CORPUSCULAR HEMOGLOBIN 29 pg (25-34); MEAN CORPUSCULAR HGB CONC 34 g/dL (32-36); MEAN CORPUSCULAR VOLUME 85 fL (80-99); MEAN PLATELET VOLUME 11.1 fL (9.0-12.2); MONOCYTES # (AUTO) 0.7 10^3/uL (0.0-1.0); MONOCYTES % (AUTO) 9 % (0-12); NEUTROPHILS # (AUTO) 5.7 10^3/uL (1.8-7.8); NEUTROPHILS % (AUTO) 68 % (42-75); PLATELET COUNT 194 10^3/uL (130-400); WHITE BLOOD COUNT 8.5 10^3/uL (4.3-11.0)
[2021-12-27] MEDS: D5 LR IV SOLUTION 1,000 ML IV SCH ×2 (06:33→15:35)
--- NOTE | 2021-12-27 08:01 | History & Physical-OB/GYN ---
LONNEI BERNARDO 12/27/21 0801: OB - Chief Complaint & HPI Date/Time Date of Admission: Date of Admission: Dec 27, 2021 at 05:37 Date seen by a Provider: Dec 27, 2021 Time Seen by a Provider: 07:50 Chief Complaint/History OB-Reason for Admission/Chief: Induction of Labor Hx : 2 Hx Para: 0 Expected Date of Delivery: Dec 22, 2021 Gestational Age in Weeks: 40 Gestational Age in Days: 5 Indication for induction: post dates (approaching post dates) Admission Nurse Assessment Rev: Yes Allergies and Home Medications Allergies Coded Allergies: diphenhydramine (Unverified Adverse Reaction, Unknown, paralysis, 10/31/19) montelukast (Unverified Adverse Reaction, Unknown, migraine, 10/31/19) Patient Home Medication List Home Medication List Reviewed: Yes Omeprazole (Omeprazole) 20 Mg Capsule.dr, 20 MG PO DAILY, (Reported) Entered as Reported by: ROB SALAZAR on 12/02/21 2345 Pnv Cmb#21/Iron/Folic Acid ( Complete Caplet) 1 Each Tablet, 1 EACH PO DAILY, (Reported) Entered as Reported by: LEAH RUGGIERO on 09/08/21 1935 OB - History Hx of Present Care: Yes Ultrasounds: Normal mid trimester US Obstetrical Complications: None Information Induced Hypertension: No Maternal Gestational Diabetes: No Hemorrhage: No Obstetrical History Hx : 2 Hx Para: 0 Hx Complication: Yes (miscarriage) Hx Induced Hypertens: No Hx Maternal Gestational Diabet: No Hx Hemorrhage: No Patient Past Medical History Past MedHx GERD Seasonal alergies Asthma Scoliosis Arthritis Joint destruction SurgHx Right wrist repair Social History/Family History Alcohol Use: Denies Use Recreational Drug Use: No Smoking Cessation: Never smoker 2nd Hand Smoke Exposure: No Immunizations First/Initial COVID19 Vaccine: NONE Second COVID19 Vaccination: NONE Third COVID19 Vaccination Date: NONE Tetanus Booster (TDap): Less than 5yrs Rubella: not immune (equiv) RPR/VDRL: Negative GBS Status: Negative HBsAG: Negative OB - Admission Exam Physical Exam Vitals: Vital Signs 12/27/21 07:26 Temp 36.6 Pulse 97 Resp 18 B/P (MAP) 232/78 (129) O2 Delivery Room Air HEENT: EOMI Heart: Rhythm Normal Lungs: Clear, Equal Abdomen: Gravid Extremities: Edema (trace) Cervical Dilatation: 3cm Effacement: 75% (70%) Station: -3 Membranes: Intact Heart Rate: 150's Accelerations: Accelerations Present Decelerations: No Decelerations Short Term Variability: Present Snf Variability: Average (6-25) Contractions on Admission: < 5 Minutes Apart (on pitocin now, was between 6-10 minutes on arrival) Intensity: Mild Labs Laboratory Tests Test 12/27/21 06:05 Range/Units White Blood Count 8.5 4.3-11.0 10^3/uL Red Blood Count 4.14 3.80-5.11 10^6/uL Hemoglobin 12.1 11.5-16.0 g/dL Hematocrit 35 35-52 % Mean Corpuscular Volume 85 80-99 fL Mean Corpuscular Hemoglobin 29 25-34 pg Mean Corpuscular Hemoglobin Concent 34 32-36 g/dL Red Cell Distribution Width 13.1 10.0-14.5 % Platelet Count 194 130-400 10^3/uL Mean Platelet Volume 11.1 9.0-12.2 fL Immature Granulocyte % (Auto) 0 % Neutrophils (%) (Auto) 68 42-75 % Lymphocytes (%) (Auto) 23 12-44 % Monocytes (%) (Auto) 9 0-12 % Eosinophils (%) (Auto) 0 0-10 % Basophils (%) (Auto) 0 0-10 % Neutrophils # (Auto) 5.7 1.8-7.8 10^3/uL Lymphocytes # (Auto) 2.0 1.0-4.0 10^3/uL Monocytes # (Auto) 0.7 0.0-1.0 10^3/uL Eosinophils # (Auto) 0.0 0.0-0.3 10^3/uL Basophils # (Auto) 0.0 0.0-0.1 10^3/uL Immature Granulocyte # (Auto) 0.0 0.0-0.1 10^3/uL OB - Assessment/Plan/Diagnosis Assessment Assessment: induction of labor Admission Dx Induction of Labor Admission Status: Inpatient Order (span 2 midnights) Reason for Inpatient Admission: Induction of labor Plan Plan: Induction Induction Method: per Pitocin Protocol CHECO HOLLINGSWORTH MD 12/27/21 1623: Allergies and Home Medications Allergies Coded Allergies: diphenhydramine (Unverified Adverse Reaction, Unknown, paralysis, 10/31/19) montelukast (Unverified Adverse Reaction, Unknown, migraine, 10/31/19) Patient Home Medication List Omeprazole (Omeprazole) 20 Mg Capsule.dr, 20 MG PO DAILY, (Reported) Entered as Reported by: ROB SALAZAR on 12/02/21 2345 Pnv Cmb#21/Iron/Folic Acid ( Complete Caplet) 1 Each Tablet, 1 EACH PO DAILY, (Reported) Entered as Reported by: LEAH RUGGIERO on 09/08/21 1935 OB - Admission Exam Physical Exam Cervical Dilatation: 4cm Effacement: 25% (70%) Station: -2 Fabian Scoring Tool (Modified) Dilation (cm): 3-4cm (2) Effacement (%): 0-30% (0) Descent/Station: -2 (1) Cervix Consistency: Soft (2) Cervix Position: Anterior (2) Subtract 1 point for: Postdate (-1), Nulliparity (-1) Fabian Score: 4 Supervisory-Addendum Brief Verification & Attestation Participated in pt care: history, MDM, physical Personally performed: exam, history, MDM, supervision of care Care discussed with: Medical Student Procedures: n/a Results interpretation: Verified all documentation I personally have seen and evaluated the patient and performed the physical exam and repeated the history. I agree with the student documentation and I directed the plan of care as documented by the medical student. I did not repeat the entire physical exam documented by student, see my exam findings. LONNIE BERNARDO Dec 27, 2021 08:01 CHECO HOLLINGSWORTH MD Dec 27, 2021 16:23
--- NOTE | 2021-12-27 08:34 | Labor Progress Note ---
Labor Progress Note Labor Progress Note Date Seen by Provider: Dec 27, 2021 Time Seen by Provider: 08:20 Subjective: Pt denies complaints. Objective: Cervical exam: Consistency: Soft Position: anterior Presentation: vertex heart tones: 150 beats per minute, moderate variability, reactive Tocometer: 3 ctx/10 minutes Assessment/Plan: Reji Lerma is a (26 /Para 2 / 0,Gestational Age (wks)40 here for induction of labor. AROM done at time of exam with meconium stained fluid noted. CEFM/TOCO Continue pitocin Anesthesia: Plans epidural when ready Anticipate vaginal delivery. Vitals - Labs Vital Signs - I&O Vital Signs Date Time Temp Pulse Resp B/P (MAP) Pulse Ox O2 Delivery O2 Flow Rate FiO2 12/27/21 08:00 108 18 130/86 (101) Room Air 12/27/21 07:42 97 18 126/82 (97) Room Air 12/27/21 07:26 36.6 97 18 121/78 (92) Room Air 12/27/21 06:23 36.6 110 18 98 Room Air 12/27/21 06:23 36.6 110 18 133/77 (95) 98 Room Air Labs Laboratory Tests 12/27/21 06:05: White Blood Count 8.5, Red Blood Count 4.14, Hemoglobin 12.1, Hematocrit 35, Mean Corpuscular Volume 85, Mean Corpuscular Hemoglobin 29, Mean Corpuscular Hemoglobin Concent 34, Red Cell Distribution Width 13.1, Platelet Count 194, Mean Platelet Volume 11.1, Immature Granulocyte % (Auto) 0, Neutrophils (%) (Auto) 68, Lymphocytes (%) (Auto) 23, Monocytes (%) (Auto) 9, Eosinophils (%) (Auto) 0, Basophils (%) (Auto) 0, Neutrophils # (Auto) 5.7, Lymphocytes # (Auto) 2.0, Monocytes # (Auto) 0.7, Eosinophils # (Auto) 0.0, Basophils # (Auto) 0.0, Immature Granulocyte # (Auto) 0.0 CHECO HOLLINGSWORTH MD Dec 27, 2021 08:34
[2021-12-27] MEDS ORDERED: fentaNYL 2 mcg/ml BUPIVA 0.125 100 ML ONE (09:31)
[2021-12-27] MEDS ORDERED: BUPIVACAINE 0.25% 30 ML (SENSORCAINE) VIAL ONE (09:39)
[2021-12-27] MEDS ORDERED: fentaNYL INJ 100 MCG/2 ML AMP ONE (09:40)
[2021-12-27] MEDS ORDERED: LACTATED RINGERS 1,000 ML IV ONE (09:45)
[2021-12-27] MEDS ORDERED: fentaNYL 2 mcg/ml BUPIVA 0.125 100 ML IV SCH (09:45)
[2021-12-27] MEDS ORDERED: CATHETER FLUSH 10 ML SYR IV PRN (09:45)
[2021-12-27] MEDS ORDERED: NALOXONE 0.4 MG/ML 1 ML (NARCAN) VIAL IV PRN (09:45)
[2021-12-27] MEDS ORDERED: LIDOCAINE/EPI 2% 1:200,00 (XYLOCAINE) 10 ML VIAL ONE (14:12)
[2021-12-27] MEDS ORDERED: ONDANSETRON 4 MG/2 ML (SDV) Z0FRAN ONE (15:49)
[2021-12-27] MEDS ORDERED: ONDANSETRON 4 MG/2 ML (SDV) Z0FRAN IVP PRN (16:00)
[2021-12-27] MEDS ORDERED: LIDOCAINE/EPI 2% 1:200,00 (XYLOCAINE) 10 ML VIAL INJ ONE (18:30)
[2021-12-27] MEDS ORDERED: BENZOCAINE/MENTHOL (DERMOPLAST) 56 ML CAN TP PRN (18:45)
[2021-12-27] MEDS ORDERED: WITCH HAZEL(TUCKS) 40 EA JAR TOP PRN (18:45)
[2021-12-27] MEDS ORDERED: MEASLES,MUMPS,RUBELLA 1 EA INJ SQ ONE (18:45)
--- NOTE | 2021-12-27 18:47 | OB Labor & Delivery Record ---
Vag Delivery Note Vag Delivery Note Date of Delivery: 12/27/21 Preoperative Diagnosis: Reji Lerma is a (26 /Para 2 / 0, Gestational Age (wks)40with 5 days Postoperative Diagnosis: Same Surgeon: CHECO HOLLINGSWORTH Irb Compliance Coordinator: Julian Delgado, OMS4 Anesthesia: Epidural Delivery Type: Findings: Viable female , apgars 7/9, weight 8#9 Lacerations: second degree perineal laceration Intact placenta with 3 vessel cord. No nuchal cord, body cord. Brief shoulder dystocia. Estimated Blood Loss: 200 ml Complications: None Condition: Stable Description of Procedure: The patient is a 26 year old female who presented for induction of labor due to approaching post-dates. She was admitted and informed consent was obtained. Her labor course was remarkable for meconium stained fluid. She progressed to complete dilatation and began to push. She was then set up for delivery. The infant's head was delivered atraumatically in the RAJNI position. The anterior shoulder did not deliver immediately, McRobert's positioning was used and anterior shoulder delivered within one minute of the head. The remainder of the infant's body were then delivered without difficulty. Upon delivery, the infant was placed on maternal abdomen. The cord was doubly clamped and cut and the was handed off to the pediatric staff. An intact placenta with 3-vessel cord delivered via Marko and there was found to be minimal bleeding.~ Vigorous fundal massage was performed and the fundus was found to be firm. IV oxytocin was given. Examination of the vagina and perineum revealed a second degree laceration repaired in the usual fashion with 3-0 vicryl rapide suture. Following the repair, sponge, instrument and needle counts were correct. Mom and baby were both in stable condition in the labor suite. Vitals - Labs Vital Signs - I&O Vital Signs Date Time Temp Pulse Resp B/P (MAP) Pulse Ox O2 Delivery O2 Flow Rate FiO2 12/27/21 16:52 77 20 158/81 (106) Room Air 12/27/21 16:38 100 20 139/96 (110) Room Air 12/27/21 16:21 99 18 132/65 (87) Room Air 12/27/21 15:58 114 18 125/87 (100) 98 Room Air 12/27/21 15:38 107 18 146/83 (104) 98 Room Air 12/27/21 15:23 102 18 143/94 (110) 97 Room Air 12/27/21 15:07 100 18 145/80 (101) 99 Room Air 12/27/21 14:53 109 18 141/89 (106) 99 Room Air 12/27/21 14:38 115 18 137/85 (102) 99 Room Air 12/27/21 14:22 84 18 118/65 (82) 99 Room Air 12/27/21 14:08 94 18 122/70 (87) 98 Room Air 12/27/21 13:53 97 18 133/68 (89) 98 Room Air 12/27/21 13:39 36.6 82 18 123/76 (92) 99 Room Air 12/27/21 13:22 90 18 116/77 (90) 99 Room Air 12/27/21 13:08 98 18 128/79 (95) 98 Room Air 12/27/21 12:53 85 18 136/60 (85) 98 Room Air 12/27/21 12:38 90 18 120/79 (93) 99 Room Air 12/27/21 12:23 83 18 119/70 (86) 99 Room Air 12/27/21 12:08 91 18 121/75 (90) 100 Room Air 12/27/21 11:54 81 18 117/73 (88) 100 Room Air 12/27/21 11:37 81 18 109/66 (80) 99 Room Air 12/27/21 11:22 36.6 86 18 111/62 (78) 100 Room Air 12/27/21 11:08 94 18 113/65 (81) 99 Room Air 12/27/21 10:53 93 16 118/68 (85) 100 Room Air 12/27/21 10:36 96 18 111/66 (81) 99 Room Air 12/27/21 10:35 94 18 114/72 (86) 99 Room Air 12/27/21 10:32 96 18 117/67 (84) 99 Room Air 12/27/21 10:30 110 18 122/69 (86) 99 Room Air 12/27/21 10:25 96 18 121/70 (87) 99 Room Air 12/27/21 10:23 96 18 117/69 (85) 98 Room Air 12/27/21 10:19 90 18 116/70 (85) 99 Room Air 12/27/21 10:13 118 18 118/66 (83) 99 Room Air 12/27/21 10:10 115 18 118/68 (85) 99 Room Air 12/27/21 10:06 118 18 125/74 (91) 98 Room Air 12/27/21 10:03 99 20 123/75 (91) 99 Room Air 12/27/21 10:00 108 20 124/77 (93) 98 Room Air 12/27/21 09:57 97 20 136/71 (92) 98 Room Air 12/27/21 09:54 93 18 139/73 (95) 100 Room Air 12/27/21 09:51 100 18 136/83 (100) 100 Room Air 12/27/21 09:45 91 18 130/82 (98) Room Air 12/27/21 09:30 36.8 97 18 118/76 (90) Room Air 12/27/21 09:15 90 18 132/81 (98) Room Air 12/27/21 09:00 98 18 135/99 (111) Room Air 12/27/21 08:45 94 18 126/80 (95) Room Air 12/27/21 08:30 93 18 154/74 (100) Room Air 12/27/21 08:15 97 18 137/81 (99) Room Air 12/27/21 08:00 108 18 130/86 (101) Room Air 12/27/21 07:42 97 18 126/82 (97) Room Air 12/27/21 07:26 36.6 97 18 121/78 (92) Room Air 12/27/21 06:23 36.6 110 18 98 Room Air 12/27/21 06:23 36.6 110 18 133/77 (95) 98 Room Air Labs Laboratory Tests 12/27/21 06:05: White Blood Count 8.5, Red Blood Count 4.14, Hemoglobin 12.1, Hematocrit 35, Mean Corpuscular Volume 85, Mean Corpuscular Hemoglobin 29, Mean Corpuscular Hemoglobin Concent 34, Red Cell Distribution Width 13.1, Platelet Count 194, Mean Platelet Volume 11.1, Immature Granulocyte % (Auto) 0, Neutrophils (%) (Auto) 68, Lymphocytes (%) (Auto) 23, Monocytes (%) (Auto) 9, Eosinophils (%) (Auto) 0, Basophils (%) (Auto) 0, Neutrophils # (Auto) 5.7, Lymphocytes # (Auto) 2.0, Monocytes # (Auto) 0.7, Eosinophils # (Auto) 0.0, Basophils # (Auto) 0.0, Immature Granulocyte # (Auto) 0.0 Shoulder Dystocia Note Shoulder Dystocia Start Time of Delivery of HEAD: 18:01 Time shoulder dystocia called: 18:01 HOB in lowered position: Yes Time of delivery of BODY: 18:01 Positional Maneuvers CHECO Colby MD Dec 27, 2021 18:47
[2021-12-27] MEDS: IBUPROFEN 600 MG (MOTRIN) TAB PO SCH (19:53)
[2021-12-27] MEDS: DOCUSATE SODIUM 100 MG (COLACE) CAP PO SCH (21:28)
[2021-12-28] MEDS: CATHETER FLUSH 10 ML SYR IV SCH ×2 (02:46→07:00)
[2021-12-28 02:56] VITALS: BP 114/61
[2021-12-28] MEDS: IBUPROFEN 600 MG (MOTRIN) TAB PO SCH ×4 (02:58→21:03)
[2021-12-28 06:10] LABS: BASOPHILS % (AUTO) 0 % (0-10); EOSINOPHILS % (AUTO) 0 % (0-10); HEMATOCRIT 29 % (35-52); HEMOGLOBIN 9.7 g/dL (11.5-16.0); LYMPHOCYTES # (AUTO) 1.8 10^3/uL (1.0-4.0); LYMPHOCYTES % (AUTO) 17 % (12-44); MEAN CORPUSCULAR HEMOGLOBIN 29 pg (25-34); MEAN CORPUSCULAR HGB CONC 34 g/dL (32-36); MEAN CORPUSCULAR VOLUME 87 fL (80-99); MEAN PLATELET VOLUME 10.8 fL (9.0-12.2); MONOCYTES # (AUTO) 0.8 10^3/uL (0.0-1.0); MONOCYTES % (AUTO) 7 % (0-12); NEUTROPHILS # (AUTO) 8.5 10^3/uL (1.8-7.8); NEUTROPHILS % (AUTO) 76 % (42-75); PLATELET COUNT 155 10^3/uL (130-400); WHITE BLOOD COUNT 11.1 10^3/uL (4.3-11.0)
--- NOTE | 2021-12-28 08:45 | Anesthesia-Regional Post-Op ---
Regional Patient Condition Mental Status: Alert, Oriented x3 Circulation: Same as Pre-Op Headache: Absent Sensation: Full Recovery Motor Block: Absent Post Op Complications Complications None Follow Up Care/Instructions Patient Instructions None needed. Anesthesia/Patient Condition Patient is doing well, no complaints, stable vital signs, no apparent adverse anesthesia problems. No complications reported per nursing. CARRIE PERDUE CRNA Dec 28, 2021 08:45
[2021-12-28] MEDS: DOCUSATE SODIUM 100 MG (COLACE) CAP PO SCH ×2 (10:27→21:03)
[2021-12-28 11:44] VITALS: BP 117/72
--- NOTE | 2021-12-28 11:54 | Postpartum Progress Note ---
Note Note Day # 1 Subjective: Patient is without complaints. Ambulating, voiding. Tolerating a regular diet without nausea or vomiting. Normal lochia. Pain is well controlled with oral pain medications. bottle feeding. Objective: Physical Exam: General - Alert and oriented, no apparent distress Abdomen - Soft, appropriately tender to palpation, non-distended, fundus firm at umbilicus Extremities - no edema, negative Marleny's bilaterally Assessment: 26 yo G2 now P1 post- day # 1, status post uncomplicate vaginal delivery @ 40.5 wga Recovering well, hemodynamically stable Plan: Routine care. Encourage breast feeding, patient is currently bottle feeding, consult placed Encourage ambulation. Ferrous sulfate supplementation, Hgb 9.7 Plan for discharge tomorrow with 6 week f.u with [facility] Vitals - Labs Vital Signs - I&O Vital Signs Date Time Temp Pulse Resp B/P (MAP) Pulse Ox O2 Delivery O2 Flow Rate FiO2 12/28/21 11:44 36.4 110 18 117/72 (87) 98 Room Air 12/28/21 02:56 36.3 91 16 114/61 (78) 97 Room Air 12/27/21 23:04 36.3 102 18 121/71 (88) 96 Room Air 12/27/21 20:14 109 126/76 (93) Room Air 12/27/21 19:39 109 121/74 (90) Room Air 12/27/21 19:25 36.3 100 18 124/73 (90) Room Air 12/27/21 19:10 103 18 103/65 (78) Room Air 12/27/21 18:55 36.9 111 18 130/61 (84) Room Air 12/27/21 18:39 121 18 149/63 (91) Room Air 12/27/21 18:24 117 18 129/62 (84) Room Air 12/27/21 18:09 99 18 126/60 (82) Room Air 12/27/21 17:58 96 20 130/62 (84) Room Air 12/27/21 17:22 96 20 174/82 (112) Room Air 12/27/21 17:09 91 20 166/76 (106) Room Air 12/27/21 16:52 77 20 158/81 (106) Room Air 12/27/21 16:38 100 20 139/96 (110) Room Air 12/27/21 16:21 99 18 132/65 (87) Room Air 12/27/21 15:58 114 18 125/87 (100) 98 Room Air 12/27/21 15:38 107 18 146/83 (104) 98 Room Air 12/27/21 15:23 102 18 143/94 (110) 97 Room Air 12/27/21 15:07 100 18 145/80 (101) 99 Room Air 12/27/21 14:53 109 18 141/89 (106) 99 Room Air 12/27/21 14:38 115 18 137/85 (102) 99 Room Air 12/27/21 14:22 84 18 118/65 (82) 99 Room Air 12/27/21 14:08 94 18 122/70 (87) 98 Room Air 12/27/21 13:53 97 18 133/68 (89) 98 Room Air 12/27/21 13:39 36.6 82 18 123/76 (92) 99 Room Air 12/27/21 13:22 90 18 116/77 (90) 99 Room Air 12/27/21 13:08 98 18 128/79 (95) 98 Room Air 12/27/21 12:53 85 18 136/60 (85) 98 Room Air 12/27/21 12:38 90 18 120/79 (93) 99 Room Air 12/27/21 12:23 83 18 119/70 (86) 99 Room Air 12/27/21 12:08 91 18 121/75 (90) 100 Room Air 12/27/21 11:54 81 18 117/73 (88) 100 Room Air I & O 12/28/21 07:00 Intake Total 2000 ml Balance 2000 ml Labs Laboratory Tests 12/28/21 06:04: White Blood Count 11.1H, Red Blood Count 3.31L, Hemoglobin 9.7L, Hematocrit 29L, Mean Corpuscular Volume 87, Mean Corpuscular Hemoglobin 29, Mean Corpuscular Hemoglobin Concent 34, Red Cell Distribution Width 13.2, Platelet Count 155, Mean Platelet Volume 10.8, Immature Granulocyte % (Auto) 0, Neutrophils (%) (Auto) 76H, Lymphocytes (%) (Auto) 17, Monocytes (%) (Auto) 7, Eosinophils (%) (Auto) 0, Basophils (%) (Auto) 0, Neutrophils # (Auto) 8.5H, Lymphocytes # (Auto) 1.8, Monocytes # (Auto) 0.8, Eosinophils # (Auto) 0.0, Basophils # (Auto) 0.0, Immature Granulocyte # (Auto) 0.0 MITUL STOVALL MD Dec 28, 2021 11:54
[2021-12-28] MEDS: FERROUS SULF 325 MG (IRON) TAB PO SCH (12:56)
[2021-12-28 14:49] VITALS: BP 118/59
[2021-12-28 20:54] VITALS: BP 110/70
[2021-12-29 02:50] VITALS: BP 119/64
[2021-12-29] MEDS: IBUPROFEN 600 MG (MOTRIN) TAB PO SCH ×2 (02:59→09:38)
[2021-12-29 09:37] VITALS: BP 125/72
[2021-12-29] MEDS: FERROUS SULF 325 MG (IRON) TAB PO SCH (09:38)
[2021-12-29] MEDS: DOCUSATE SODIUM 100 MG (COLACE) CAP PO SCH (09:38)
[2021-12-29] MEDS ORDERED: FERR325T24 PO (09:39)
[2021-12-29] MEDS ORDERED: IBUP-844 PO (09:39)
--- NOTE | 2021-12-29 09:44 | Short Stay Summary ---
Discharge Summary Hospital Course Final Diagnosis: s/p Hospital Course Date of Admission: Dec 27, 2021 at 05:37 Admission Diagnosis : 1. IOL at 40w6d Family Physician/Provider: Checo Rick MD Date of Discharge: 12/29/21 Discharge Diagnosis: 1. IOL at 40w6d; s/p 2. second degree laceration 3. anemia Hospital Course: See delivery note for delivery details. Routine course. Labs and Pending Lab Test: Home Meds Active Reported Omeprazole 20 Mg Capsule.dr 20 Mg PO DAILY Complete Caplet (Pnv Cmb#21/Iron/Folic Acid) 1 Each Tablet 1 Each PO DAILY Assessment/Pt Instructions Prescription for: Ibuprofen 600mg every 6 hours as needed for cramping Ferrous sulfate 325mg daily in addition to continuing vitamin Follow up with Dr. Rick in 6wk. Discharge Instructions Discharge Diet: No Restrictions Activity as Tolerated: Yes Discharge Physical Examination General Appearance: Alert, Oriented X3, Cooperative Psych/Mental Status: Mood NL Allergies: Coded Allergies: diphenhydramine (Unverified Adverse Reaction, Unknown, paralysis, 10/31/19) montelukast (Unverified Adverse Reaction, Unknown, migraine, 10/31/19) Copy Copies To 1: CHECO RICK MD Discharge Summary Date of Admission Dec 27, 2021 at 05:37 Date of Discharge REED BUI DO Dec 29, 2021 09:44
--- NOTE | 2022-01-01 10:24 | Physician Query Clarification ---
PQ-Further Specificity Admission/Discharge Admission Date: Dec 27, 2021 at 05:37 Discharge Date: Dec 29, 2021 at 11:50 Dr. Bui, The medical record reflects the following clinical scenario: History/Risk Factors: post-term PG, meconium stained fluid, second degree laceration Clinical Findings: Hct/Hgb 12.1/35 > 02/13/29, EBL 200 ml Treatment: 325 mg Ferrous sulfate Question: Can you further specify anemia per the clinical indicators above? Please document a response in the Progress Notes or Discharge Summary. 1. anemia due to acute blood loss 2. anemia not further specified 3. Other, with explanation of the clinical findings. 4. Clinically undetermined, no explanation for the clinical findings. PHYSICIAN RESPONSE Can you specify per above: 1 In responding to this query, please exercise your independent professional judgment. The purpose of this communication is to more accurately reflect the complexity of your patients condition. The fact that a question is asked does not imply that any particular answer is desired or expected. Thank you for your timely response to this clarification. Requestors name: Christi THIS PHYSICIAN QUERY FORM IS A PERMANENT PART OF THE MEDICAL RECORD CHRISTI BONILLA Jan 01, 2022 10:24 REED BIU DO Jan 16, 2022 21:25
== END 2021-12-29 11:50 | disposition home or self-care (01) | DRG 807 ==
LOC: LDRP 05:37
PROVIDERS: ADMIT Family Medicine; ATTEND Family Medicine
PROC: 10E0XZZ Delivery of Products of Conception, External Approach (ICD-10-PCS; principal; 2021-12-27)
PROC: 0KQM0ZZ Repair Perineum Muscle, Open Approach (ICD-10-PCS; 2021-12-27)
PROC: 3E033VJ Introduction of Other Hormone into Peripheral Vein, Percutaneous Approach (ICD-10-PCS; 2021-12-27)
DX: O48.0 Post-term pregnancy (principal); Z37.0 Single live birth; O77.0 Labor and delivery complicated by meconium in amniotic fluid; Z3A.40 40 weeks gestation of pregnancy; O70.1 Second degree perineal laceration during delivery; O66.0 Obstructed labor due to shoulder dystocia; O90.81 Anemia of the puerperium; D64.9 Anemia, unspecified; K21.9 Gastro-esophageal reflux disease without esophagitis; O99.613 Diseases of the digestive system complicating pregnancy, third trimester; Z28.310 Unvaccinated for COVID-19; Z28.9 Immunization not carried out for unspecified reason; Z88.8 Allergy status to other drugs, medicaments and biological substances
CPT/HCPCS: 36415; 85025; 86850; 86900; 86901; 88307

== ENCOUNTER 2022-01-15 02:29 | Emergency (ER) | payer MEDICAID ==
[~2022-01-15] VITALS: Ht 160 cm; Wt 108.9 kg
[~2022-01-15 02:29] MED LIST changes: +FERR325T24 PO; +IBUP-844 PO
--- NOTE | 2022-01-15 03:25 | ED General ---
General Chief Complaint: COVID19 Suspect/Confirmed Stated Complaint: COLD CHILLS,FEVER Nursing Triage Note: PT ARRIVAL TO ER WITH COMPLAINTS OF FEVER, CHILLS, HEADACHE, AND SORE THROAT SINCE YESTERDAY 01/13/22 AM. PT IS NOT VACCINATED. Source of Information: Patient Exam Limitations: No Limitations History of Present Illness Date Seen by Provider: Jan 15, 2022 Time Seen by Provider: 02:53 Initial Comments This 26-year-old young lady presents to the emergency room with complaints of flulike symptoms including sore throat, headache, myalgia, earaches, chills, and cough that she woke up with yesterday. She is febrile at present. Allergies and Home Medications Allergies Coded Allergies: hydrocodone (Verified Adverse Reaction, Mild, Vomiting, 01/15/22) diphenhydramine (Unverified Adverse Reaction, Unknown, paralysis, 10/31/19) montelukast (Unverified Adverse Reaction, Unknown, migraine, 10/31/19) Patient Home Medication List Home Medication List Reviewed: Yes Ferrous Sulfate (Ferosul) 325 Mg (65 Mg Iron) Tablet, 325 MG PO DAILY@0700 Prescribed by: REED BUI on 12/29/21 0939 Ibuprofen (Ibu) 600 Mg Tablet, 600 MG PO Q6H PRN for CRAMPS Prescribed by: REED BUI on 12/29/21 0939 Omeprazole (Omeprazole) 20 Mg Capsule.dr, 20 MG PO DAILY, (Reported) Entered as Reported by: ROB SALAZAR on 12/02/21 2345 Pnv Cmb#21/Iron/Folic Acid ( Complete Caplet) 1 Each Tablet, 1 EACH PO DAILY, (Reported) Entered as Reported by: LEAH RUGGIERO on 09/08/21 1935 Review of Systems Review of Systems Constitutional: see HPI EENTM: see HPI Respiratory: see HPI Cardiovascular: no symptoms reported Gastrointestinal: diarrhea Genitourinary: no symptoms reported Musculoskeletal: see HPI Skin: no symptoms reported Psychiatric/Neurological: See HPI Hematologic/Lymphatic: No Symptoms Reported Immunological/Allergic: no symptoms reported Past Wzckbcc-Dshbjz-Ywbyig Hx Patient Social History Tobacco Use?: No Use of E-Cig and/or Vaping dev: No Substance use?: No Alcohol Use?: No Pt feels they are or have been: No Immunizations Up To Date Tetanus Booster (TDap): Less than 5yrs Influenza Vaccine Up-to-Date: No; Not Current First/Initial COVID19 Vaccinat: NONE Second COVID19 Vaccination Manas: NONE Third COVID19 Vaccination Date: NONE Seasonal Allergies Seasonal Allergies: No Past Medical History Surgery/Hospitalization HX: MISCARRIAGE 10/20/20 Surgeries: No Respiratory: No Cardiac: No Neurological: No : No Genitourinary: No Gastrointestinal: Yes Gastroesophageal Reflux Musculoskeletal: No Endocrine: No HEENT: Yes (OCCASIONAL TONSILLITIS) Tonsilitis Cancer: No Psychosocial: No Integumentary: No Blood Disorders: No Physical Exam Vital Signs Vital Signs - First Documented 01/15/22 02:40 Temp 38.8 Pulse 117 Resp 20 B/P (MAP) 126/104 (111) Pulse Ox 97 O2 Delivery Room Air Capillary Refill : Less Than 3 Seconds Height, Weight, BMI Height: 5'3.00" Weight: 230lbs. oz. 104.948096wh; 42.00 BMI Method:Stated General Appearance: No Apparent Distress, WD/WN HEENT: PERRL/EOMI, TMs Normal, Normal ENT Inspection, Pharynx Normal Neck: Normal Inspection; No JVD Respiratory: Lungs Clear, Normal Breath Sounds, No Accessory Muscle Use, No Respiratory Distress Cardiovascular: No Edema, No Murmur, Tachycardia Gastrointestinal: Normal Bowel Sounds, Non Tender, Soft Extremity: Normal Inspection, No Pedal Edema Neurologic/Psychiatric: Alert, Oriented x3, No Motor/Sensory Deficits, Normal Mood/Affect, internal sales engineer II-XII Norm as Tested Skin: Normal Color, Warm/Dry Progress/Results/Core Measures Suspected Sepsis SIRS Temperature: Pulse: 117 Respiratory Rate: 20 Blood Pressure 126 /104 Mean: 111 Results/Orders Lab Results Laboratory Tests Test 01/15/22 02:36 Range/Units Influenza Type A (RT-PCR) Not Detected Not Detecte Influenza Type B (RT-PCR) Not Detected Not Detecte SARS-CoV-2 RNA (RT-PCR) Detected H Not Detecte My Orders Orders - JEROMY MATA MD Covid 19 Inhouse Test (01/15/22 02:52) Influenza A And B By Pcr (01/15/22 02:52) Rx-Nirmatrelvir/Ritonavir(Eua) (Rx-Paxlo (01/15/22 04:15) Vital Signs/I&O 01/15/22 01/15/22 02:40 04:13 Temp 38.8 Pulse 117 103 Resp 20 20 B/P (MAP) 126/104 (111) 119/95 Pulse Ox 97 98 O2 Delivery Room Air Room Air Capillary Refill : Less Than 3 Seconds Blood Pressure Mean: 111 Progress Note : Progress Note Patient tested positive for COVID-19. We discussed use of Paxlovid or monoclonal antibodies due to her risk factor of obesity. After discussing options she selected Paxlovid. She is not breast-feeding. See discharge instructions. Departure Impression Primary Impression: COVID-19 Disposition: 01 HOME, SELF-CARE Condition: Stable Departure-Patient Inst. Referrals: CHECO HOLLINGSWORTH MD (PCP/Family) Primary Care Physician Patient Instructions: COVID-19 ED, Nirmatrelvir and Ritonavir FDA Fact Sheet Add. Discharge Instructions: Complete Paxlovid as prescribed. Reviewed the FDA fact sheet provided. Drink plenty of clear liquids to stay well-hydrated. Eat a well-balanced diet. Remain active and move about the house or outside often. Change positions often when resting or lying in bed. You may take Tylenol (acetaminophen) and/or ibuprofen for pain or fever. Call with questions or concerns, and return to care if you have worsening symptoms despite following these instructions. Quarantine for at least 5 full days. If you are feeling better after 5 days you may discontinue quarantine but mask for an additional 5 days. All discharge instructions reviewed with patient and/or family. Voiced understanding. JEROMY MATA MD Jan 15, 2022 03:25
[2022-01-15 04:13] VITALS: BP 119/95
[2022-01-15] MEDS ORDERED: RX-NIRMATRELVIR/RITONAVIR (PAXLOVID) #30 TABS PO SCH (04:15)
== END 2022-01-15 04:17 | disposition home or self-care (01) ==
LOC: EDUNIT# 02:29 → ER 02:31
DX: U07.1 COVID-19 (principal); Z28.310 Unvaccinated for COVID-19
CPT/HCPCS: 87636; 99283

== ENCOUNTER 2022-12-22 11:26 | Emergency (ER) | payer MEDICAID ==
[~2022-12-22] VITALS: Ht 160 cm; Wt 111.0 kg
[2022-12-22] MEDS ORDERED: IBUP-1773 PO (11:47)
--- NOTE | 2022-12-22 11:48 | ED Lower Extremity ---
General Chief Complaint: Lower Extremity Stated Complaint: LEFT FOOT Nursing Triage Note: ARRIVED VIA AMB TO TRIAGE. STATES SHE STEPPED WRONG LAST WEEK AND HAS HAD PAIN ON THE TOP OF HER LEFT FOOT SINCE. STATES LAST NIGHT SHE HEARD A "POP" Source: patient Exam Limitations: no limitations History of Present Illness Date Seen by Provider: Dec 22, 2022 Time Seen by Provider: 11:44 Initial Comments Patient is a 27-year-old female who presents ED with left foot pain. Pain started about 1 week ago. No specific injury. Dull pain on the top part of her foot. This pain became worse last night with walking. She felt a pop to the left dorsal foot. Since then she has had increasing sharp stabbing pain. No radiation. Pain only occurs with walking. Denies taking thing for pain. No history of previous fracture. Denies any swelling, bruising, redness. Normal active range of motion of the toes as well as her ankle. Denies calf pain, fever, chills, nausea, vomiting, diarrhea Allergies and Home Medications Allergies Coded Allergies: hydrocodone (Verified Adverse Reaction, Mild, Vomiting, 01/15/22) diphenhydramine (Unverified Adverse Reaction, Unknown, paralysis, 10/31/19) montelukast (Unverified Adverse Reaction, Unknown, migraine, 10/31/19) Patient Home Medication List Home Medication List Reviewed: Yes Ferrous Sulfate (Ferosul) 325 Mg (65 Mg Iron) Tablet, 325 MG PO DAILY@0700 Prescribed by: REED BUI on 12/29/21 0939 Ibuprofen (Ibu) 600 Mg Tablet, 600 MG PO Q6H PRN for CRAMPS Prescribed by: REED BUI on 12/29/21 0939 Ibuprofen (Ibuprofen) 600 Mg Tablet, 600 MG PO Q8H Prescribed by: KATY MCRAE on 12/22/22 1147 Omeprazole (Omeprazole) 20 Mg Capsule.dr, 20 MG PO DAILY, (Reported) Entered as Reported by: ROB SALAZAR on 12/02/21 0585 Pnv Cmb#21/Iron/Folic Acid ( Complete Caplet) 1 Each Tablet, 1 EACH PO DAILY, (Reported) Entered as Reported by: LEAH RUGGIERO on 09/08/21 1935 Review of Systems Constitutional: No chills, No diaphoresis, No weakness EENTM: No ear pain, No double vision Respiratory: No cough Cardiovascular: No chest pain, No edema Gastrointestinal: No abdominal pain, No nausea, No vomiting Genitourinary: No discharge Musculoskeletal: No back pain; joint pain, muscle pain All Other Systems Reviewed Negative Unless Noted: Yes Past Zddhvot-Cqznox-Hnpiqa Hx Patient Social History Tobacco Use?: No Substance use?: No Alcohol Use?: No Immunizations Up To Date Tetanus Booster (TDap): Less than 5yrs First/Initial COVID19 Vaccinat: NONE Second COVID19 Vaccination Manas: NONE Third COVID19 Vaccination Date: NONE Seasonal Allergies Seasonal Allergies: No Past Medical History Surgery/Hospitalization HX: MISCARRIAGE 10/20/20 Surgeries: No Respiratory: No Cardiac: No Neurological: No Genitourinary: No Gastrointestinal: Yes Gastroesophageal Reflux Musculoskeletal: No Endocrine: No HEENT: Yes (OCCASIONAL TONSILLITIS) Tonsilitis Cancer: No Psychosocial: No Integumentary: No Blood Disorders: No Physical Exam Vital Signs Vital Signs - First Documented 12/22/22 11:37 Temp 36.3 Pulse 84 Resp 16 B/P (MAP) 106/77 (87) Pulse Ox 98 O2 Delivery Room Air Capillary Refill : Less Than 3 Seconds Height, Weight, BMI Height: 5'3.00" Weight: 230lbs. oz. 104.304693xs; 43.00 BMI Method:Stated General Appearance: WD/WN, no apparent distress HEENT: PERRL/EOMI, normal ENT inspection, TMs normal, pharynx normal Neck: non-tender, full range of motion, supple Cardiovascular: regular rate, rhythm, no edema, no gallop, no JVD Respiratory: chest non-tender, lungs clear, normal breath sounds, no respi ratory distress, no accessory muscle use Gastrointestinal: normal bowel sounds, non tender, soft Hips: bilateral hip non-tender, bilateral hip normal inspection, bilateral hip normal range of motion Knees: bilateral knee non-tender, bilateral knee normal inspection, bilateral knee normal range of motion Ankles: bilateral ankle non-tender, bilateral ankle normal inspection, bilateral ankle normal range of motion Feet: left foot soft tissue tenderness (Tenderness to palpate between the second and fourth metatarsals. No swelling, bruising or redness. No migrated motion of the digits. No palpable nodule. Neurovascular intact.) Neurologic/Psychiatric: automatic maintainer II-XII nml as tested, no motor/sensory deficits, alert, normal mood/affect, oriented x 3 Skin: normal color, warm/dry Progress/Results/Core Measures Results/Orders My Orders Orders - ERIKA GRACE Foot, Left, 3 Views (12/22/22 11:43) Vital Signs/I&O 12/22/22 12/22/22 11:37 12:16 Temp 36.3 36.3 Pulse 84 84 Resp 16 16 B/P (MAP) 106/77 (87) 106/77 Pulse Ox 98 98 O2 Delivery Room Air Room Air Blood Pressure Mean: 87 Departure Communication (PCP) Reviewed previous ER visits, H&P, lab testing. Left foot pain. No specific injury. She is concern for potential fracture. Pain with walking. She felt a pop. due to continuous pain x-ray was ordered which did not note any acute fracture. Refuse anything for pain. Suspect foot sprain. Recommend ice, avoid strenuous activities, anti-inflammatories, Mario wrap and good foot wear. If continued pain recommend orthopedic outpatient follow-up for further evaluation. Impression Primary Impression: Foot sprain Disposition: HOME, SELF-CARE Condition: Stable Departure-Patient Inst. Decision time for Depature: 11:47 Referrals: CHECO HOLLINGSWORTH MD (PCP/Family) Primary Care Physician CHELY LANGSTON MD Patient Instructions: Foot Sprain ED Scripts Ibuprofen (Ibuprofen) 600 Mg Tablet 600 MG PO Q8H for PAIN, #12 TAB 0 Refills Prov: ERIKA GRACE 12/22/22 Work/School Note: Work Release Form Date Seen in the Emergency Department: Dec 22, 2022 Return to Work: Dec 23, 2022 ERIKA GRCAE Dec 22, 2022 11:48
--- NOTE | 2022-12-22 12:06 | Diagnostic Imaging Report ---
EXAMINATION: Left foot radiograph. TECHNIQUE: AP, oblique, lateral views of the left foot obtained. HISTORY: dorsum foot pain COMPARISON: None available. FINDINGS: Alignment is normal. No fracture is seen. Joint spaces are normal. IMPRESSION: 1. No fracture. Dictated by: Dictated on workstation # [id number]
[2022-12-22 12:16] VITALS: BP 106/77
== END 2022-12-22 12:17 | disposition home or self-care (01) ==
LOC: EDUNIT# 11:26 → ER 11:28
DX: S93.602A Unspecified sprain of left foot, initial encounter (principal); Z28.310 Unvaccinated for COVID-19; X58.XXXA Exposure to other specified factors, initial encounter
CPT/HCPCS: 73630

== ENCOUNTER 2023-03-16 16:54 | Emergency (ER) | payer MEDICAID ==
[~2023-03-16] VITALS: Ht 160 cm; Wt 111.1 kg
[~2023-03-16 16:54] MED LIST changes: +IBUP-1773 PO
[2023-03-16] MEDS ORDERED: AMOX1TAB12 PO (17:39)
--- NOTE | 2023-03-16 17:39 | ED EENT ---
History of Present Illness General Chief Complaint: Ear Problems Stated Complaint: EAR PAIN Nursing Triage Note: PT AMB TO FT2 WITH CC OF BILAT EAR PAIN X 2 WEEKS. PT STATES WAS SEEN AT [facility] "A WHILE BACK" AND ADVISED OF "FLUID IN EARS." PT DENIES RX OF ANTIBIOTIC. PT STATES PAIN HAS INCREASED. Source: patient Exam Limitations: no limitations History of Present Illness Date Seen by Provider: Mar 16, 2023 Time Seen by Provider: 17:27 Initial Comments 27-year-old female presents to the ER with complaints of bilateral ear pain for the last couple of weeks. She states that she was seen at the [facility] walk-in clinic 2 weeks ago was told that she had fluid behind her ears. She states that she was not given any medication for this. Also reports sinus issues including runny nose, nasal congestion, postnasal drainage, and intermittent sinus pain. She also reports intermittent low-grade fever, highest reading was 99.0. She states that she has been using Flonase once a day. Allergies and Home Medications Allergies Coded Allergies: hydrocodone (Verified Adverse Reaction, Mild, Vomiting, 01/15/22) diphenhydramine (Unverified Adverse Reaction, Unknown, paralysis, 10/31/19) montelukast (Unverified Adverse Reaction, Unknown, migraine, 10/31/19) Patient Home Medication List Home Medication List Reviewed: Yes Amoxicillin/Potassium Clav (Amox Tr-K Clv 875-125 mg Tab) 875 Mg-125 Mg Tablet, 1 EACH PO BID Prescribed by: Aishwarya Flores on 03/16/23 1739 Ferrous Sulfate (Ferosul) 325 Mg (65 Mg Iron) Tablet, 325 MG PO DAILY@0700 Prescribed by: REED BUI on 12/29/21 0939 Ibuprofen (Ibu) 600 Mg Tablet, 600 MG PO Q6H PRN for CRAMPS Prescribed by: REED BUI on 12/29/21 0939 Ibuprofen (Ibuprofen) 600 Mg Tablet, 600 MG PO Q8H Prescribed by: KATY MCRAE on 12/22/22 1147 Omeprazole (Omeprazole) 20 Mg Capsule.dr, 20 MG PO DAILY, (Reported) Entered as Reported by: ROB SALAZAR on 12/02/21 2345 Pnv Cmb#21/Iron/Folic Acid ( Complete Caplet) 1 Each Tablet, 1 EACH PO DAILY, (Reported) Entered as Reported by: LEAH RUGGIERO on 09/08/211934 Review of Systems Review of Systems Constitutional: see HPI Past Ituogij-Njocvm-Uslikh Hx Patient Social History Tobacco Use?: No Substance use?: No Alcohol Use?: No Immunizations Up To Date Tetanus Booster (TDap): Less than 5yrs First/Initial COVID19 Vaccinat: NONE Second COVID19 Vaccination Manas: NONE Third COVID19 Vaccination Date: NONE Seasonal Allergies Seasonal Allergies: No Past Medical History Surgery/Hospitalization HX: MISCARRIAGE 10/20/20 Surgeries: No Respiratory: No Cardiac: No Neurological: No Genitourinary: No Gastrointestinal: Yes Gastroesophageal Reflux Musculoskeletal: No Endocrine: No HEENT: Yes (OCCASIONAL TONSILLITIS) Tonsilitis Cancer: No Psychosocial: No Integumentary: No Blood Disorders: No Physical Exam Vital Signs Vital Signs - First Documented 03/16/23 17:19 Temp 36.9 Pulse 78 Resp 14 B/P (MAP) 162/92 (115) Pulse Ox 98 O2 Delivery Room Air Height, Weight, BMI Height: 5'3.00" Weight: 230lbs. oz. 104.552951nd; 43.00 BMI Method:Stated General Appearance: WD/WN, no apparent distress Ears: bilateral ear TM dull Neck: supple, normal inspection Cardiovascular: regular rate, rhythm Respiratory: lungs clear, normal breath sounds, no respiratory distress, no accessory muscle use Neurologic/Psychiatric: alert, normal mood/affect Skin: normal color, warm/dry Progress/Results/Core Measures Results/Orders Vital Signs/I&O Blood Pressure Mean: 115 Progress Progress Note : Progress Note Patient seen and evaluated, resting comfortably in recliner, no acute distress. Based on exam and symptoms, this is bacterial sinusitis. Will treat with oral antibiotic. Patient instructed continue to use Flonase [id number]. Also instructed to take Claritin or Zyrtec [id number]. Instructed to use a humidifier with distilled water and to do sinus rinses with a [place] pot or saline rinse. Patient is stable for discharge. Discharge instructions and return precautions provided. Departure Impression Primary Impression: Rhinosinusitis Disposition: 01 HOME, SELF-CARE Condition: Stable Departure-Patient Inst. Decision time for Depature: 17:37 Referrals: [facility] Patient Instructions: Sinusitis, Adult ED Add. Discharge Instructions: Complete full course of antibiotic as prescribed. Continue to use Flonase. Get Claritin or Zyrtec [id number]-[id number] and take at least once a day for the next 7 days. You may take it twice a day as needed. Use a [place] pot with distilled water or a saline rinse to clear your sinuses. Use a humidifier with distilled water at your bedside at night. Return for any new, concerning, or worsening symptoms. All discharge instructions reviewed with patient and/or family. Voiced understanding. Scripts Amoxicillin/Potassium Clav (Amox Tr-K Clv 875-125 mg Tab) 875 Mg-125 Mg Tablet 1 EACH PO BID for 7 Days, #14 TAB 0 Refills Prov: AISHWARYA MICHEL APRN 03/16/23 AISHWARYA MICHEL APRN Mar 16, 2023 17:39
[2023-03-16 17:51] VITALS: BP 162/92
== END 2023-03-16 17:51 | disposition home or self-care (01) ==
LOC: EDUNIT# 16:54 → ER 16:56
DX: J32.9 Chronic sinusitis, unspecified (principal); B96.89 Other specified bacterial agents as the cause of diseases classified elsewhere; Z28.310 Unvaccinated for COVID-19
CPT/HCPCS: 99282